=== PATIENT | female | born 1990 | race Asian ===

== ENCOUNTER 2016-07-27 20:19 | Emergency (ER) | payer OTHER ==
[~2016-07-27] VITALS: Ht 170.2 cm; Wt 145.2 kg
[2016-07-27 22:05] VITALS: BP 155/89; TEMP 97.7
== END 2016-07-27 22:06 | disposition home or self-care (01) ==
LOC: ED 20:19
DX: L03.311 Cellulitis of abdominal wall (principal)
CPT/HCPCS: 99281

== ENCOUNTER 2016-08-06 12:33 | Emergency (ER) | payer OTHER ==
[~2016-08-06] VITALS: Ht 172.7 cm; Wt 143.8 kg
[2016-08-06] MEDS ORDERED: HUMALOG MIX SC (13:32)
[2016-08-06 16:12] VITALS: BP 151/79; TEMP 98
== END 2016-08-06 16:13 | disposition home or self-care (01) ==
LOC: ED 12:33
DX: S66.125A Laceration of flexor muscle, fascia and tendon of left ring finger at wrist and hand level, initial encounter (principal); S64.92XA Injury of unspecified nerve at wrist and hand level of left arm, initial encounter; W26.0XXA Contact with knife, initial encounter; Y92.098 Other place in other non-institutional residence as the place of occurrence of the external cause
CPT/HCPCS: 90715; 99282

== ENCOUNTER 2016-12-09 17:01 | Emergency (ER) | payer OTHER ==
[~2016-12-09] VITALS: Ht 170.2 cm; Wt 144.2 kg
[~2016-12-09 17:01] MED LIST: HUMALOG MIX SC
[2016-12-09 17:32] LABS: PLATELET COUNT 228 K/uL (152-353)
[2016-12-09 17:46] LABS: POTASSIUM 3.5 mmol/L (3.6-5.2); SODIUM 125 mmol/L (136-145)
[2016-12-09 20:25] VITALS: BP 136/75; TEMP 98
== END 2016-12-09 20:25 | disposition home or self-care (01) ==
LOC: ED 17:01
DX: N39.0 Urinary tract infection, site not specified (principal); R31.9 Hematuria, unspecified; E11.65 Type 2 diabetes mellitus with hyperglycemia; E66.9 Obesity, unspecified
CPT/HCPCS: 80053; 81000; 82962; 85027; 96374; 99284; J1815

== ENCOUNTER 2016-12-09 18:26 | Outpatient (CLI) | payer OTHER | END 2016-12-09 18:46 | disposition short-term general hospital (02) | LOC: AMB 18:26 | DX: N39.0 Urinary tract infection, site not specified (principal); R31.9 Hematuria, unspecified; E11.65 Type 2 diabetes mellitus with hyperglycemia; E66.9 Obesity, unspecified ==

== ENCOUNTER 2017-05-04 13:27 | Emergency (ER) | payer OTHER ==
[~2017-05-04 13:27] MED LIST changes: +NOVOLOG MIX 70/30 PR SC
[2017-05-04 17:48] LABS: PLATELET COUNT 245 K/uL (152-353)
== END 2017-05-04 14:30 | disposition home or self-care (01) ==
LOC: ED 13:27
DX: K52.9 Noninfective gastroenteritis and colitis, unspecified (principal)
CPT/HCPCS: 80053; 81000; 81025; 82150; 83690; 85027; 99283

== ENCOUNTER 2017-09-07 16:44 | Emergency (ER) | payer OTHER ==
[~2017-09-07] VITALS: Ht 170.2 cm; Wt 131.5 kg
[2017-09-07 17:41] LABS: PLATELET COUNT 247 K/uL (152-353)
[2017-09-07 17:54] LABS: POTASSIUM 3.4 mmol/L (3.6-5.2)
[2017-09-07 18:11] LABS: PARTIAL THROMBOPLASTIN TIME 27.2 SECONDS (24.5-33.6)
[2017-09-07 18:55] VITALS: BP 127/82; TEMP 97.8
== END 2017-09-07 18:55 | disposition home or self-care (01) ==
LOC: ED 16:44
DX: R07.89 Other chest pain (principal)
CPT/HCPCS: 36415; 80053; 80307; 81000; 81025; 82550; 84484; 85027; 85610; 85730; 93005; 96375; 99284; J2060

== ENCOUNTER 2018-01-12 20:19 | Emergency (ER) | payer OTHER ==
[~2018-01-12] VITALS: Ht 170.2 cm; Wt 136.1 kg
[2018-01-12 21:35] LABS: POTASSIUM 3.9 mmol/L (3.6-5.2)
[2018-01-12 22:35] VITALS: BP 130/90; TEMP 97.7
== END 2018-01-12 22:35 | disposition home or self-care (01) ==
LOC: ED 20:19
PROVIDERS: Internal Medicine
DX: I10 Essential (primary) hypertension (principal); R51 Headache; E11.9 Type 2 diabetes mellitus without complications
CPT/HCPCS: 36415; 80053; 93005; 99283

== ENCOUNTER 2018-03-22 14:22 | Emergency (ER) | payer OTHER ==
[~2018-03-22] VITALS: Ht 170.2 cm; Wt 136.1 kg
[2018-03-22 15:20] VITALS: BP 140/75; TEMP 98.2
== END 2018-03-22 15:26 | disposition home or self-care (01) ==
LOC: ED 14:22
DX: M25.561 Pain in right knee (principal)
CPT/HCPCS: 96372; 99282; J1885; L1830

== ENCOUNTER 2018-05-11 07:05 | Emergency (ER) | payer OTHER ==
[~2018-05-11] VITALS: Ht 170.2 cm; Wt 136.1 kg
[2018-05-11 07:08] VITALS: TEMP 97.5
[2018-05-11 08:17] VITALS: BP 150/94
== END 2018-05-11 08:18 | disposition home or self-care (01) ==
LOC: ED 07:05
DX: K04.7 Periapical abscess without sinus (principal); K02.9 Dental caries, unspecified
CPT/HCPCS: 96372; 99282; J1885

== ENCOUNTER 2018-08-16 17:02 | Emergency (ER) | payer OTHER ==
[~2018-08-16] VITALS: Ht 170.2 cm; Wt 123.8 kg
[2018-08-16 17:12] VITALS: BP 141/68; TEMP 98.1
== END 2018-08-16 18:34 | disposition home or self-care (01) ==
LOC: ED 17:02
DX: S63.615A Unspecified sprain of left ring finger, initial encounter (principal); W19.XXXA Unspecified fall, initial encounter
CPT/HCPCS: 96372; 99282; J1885

== ENCOUNTER 2018-10-04 05:48 | Emergency (ER) | payer OTHER ==
[~2018-10-04] VITALS: Ht 170.2 cm; Wt 126.6 kg
[2018-10-04 06:01] VITALS: TEMP 98.8
[2018-10-04 07:45] VITALS: BP 140/84
== END 2018-10-04 07:45 | disposition home or self-care (01) ==
LOC: ED 05:48
DX: R07.81 Pleurodynia (principal); J20.9 Acute bronchitis, unspecified
CPT/HCPCS: 96372; 99283

== ENCOUNTER 2018-10-26 02:48 | Emergency (ER) | payer OTHER ==
[~2018-10-26] VITALS: Ht 170.2 cm; Wt 126.6 kg
[2018-10-26 02:51] VITALS: TEMP 99.1
[2018-10-26] MEDS ORDERED: LISI5TAB10 PO (02:59)
[2018-10-26] MEDS ORDERED: METFORMIN HCL500 M1 PO (02:59)
[2018-10-26] MEDS ORDERED: BIRTH CONTROL PO (03:00)
[2018-10-26 03:44] LABS: PLATELET COUNT 228 K/uL (152-353)
[2018-10-26 03:55] LABS: POTASSIUM 3.7 mmol/L (3.6-5.2)
[2018-10-26 08:00] VITALS: BP 150/80
== END 2018-10-26 08:00 | disposition home or self-care (01) ==
LOC: ED 02:48
PROVIDERS: Emergency Medicine
DX: F32.89 Other specified depressive episodes (principal)
CPT/HCPCS: 36415; 80053; 80307; 80320; 80329; 81000; 81025; 85027; 93005; 99285

== ENCOUNTER 2019-04-12 09:15 | Emergency (ER) | payer OTHER ==
[~2019-04-12] VITALS: Ht 170.2 cm; Wt 126.6 kg
[~2019-04-12 09:15] MED LIST changes: +BIRTH CONTROL PO; +LISI5TAB10 PO; +METFORMIN HCL500 M1 PO
[2019-04-12 10:30] VITALS: BP 135/62; TEMP 97.6
== END 2019-04-12 10:30 | disposition home or self-care (01) ==
LOC: ED 09:15
DX: M54.5 Low back pain (principal)
CPT/HCPCS: 96372; 99283; J1885; J2930

== ENCOUNTER 2019-04-21 02:11 | Emergency (ER) | payer OTHER ==
[~2019-04-21] VITALS: Ht 170.2 cm; Wt 127.0 kg
[2019-04-21 04:19] LABS: PLATELET COUNT 195 K/uL (152-353)
[2019-04-21 04:30] LABS: POTASSIUM 4.7 mmol/L (3.6-5.2)
[2019-04-21 07:15] VITALS: BP 149/82; TEMP 99
== END 2019-04-21 08:17 | disposition home or self-care (01) ==
LOC: ED 02:11
PROVIDERS: Family Medicine
DX: E11.65 Type 2 diabetes mellitus with hyperglycemia (principal)
CPT/HCPCS: 80053; 81000; 82962; 85027; 87502; 96360; 96361; 96365; 96375; 96376; 99284; J1815

== ENCOUNTER 2020-01-12 09:55 | Emergency (ER) | payer OTHER ==
[~2020-01-12] VITALS: Ht 170.2 cm; Wt 136.1 kg
[2020-01-12 10:09] VITALS: TEMP 98.7
[2020-01-12 11:00] VITALS: BP 148/78
== END 2020-01-12 11:00 | disposition home or self-care (01) ==
LOC: ED 09:55
DX: K04.7 Periapical abscess without sinus (principal); E11.65 Type 2 diabetes mellitus with hyperglycemia; Z79.84 Long term (current) use of oral hypoglycemic drugs
CPT/HCPCS: 82962; 96372; 99283; J0696; J1815; J1885

== ENCOUNTER 2020-04-07 15:38 | Emergency (ER) | payer OTHER ==
[~2020-04-07] VITALS: Ht 170.2 cm; Wt 127.0 kg
[2020-04-07 15:48] VITALS: BP 159/89; TEMP 98.9
[2020-04-07 16:25] LABS: PLATELET COUNT 214 K/uL (152-353)
[2020-04-07 16:33] LABS: POTASSIUM 3.9 mmol/L (3.6-5.2)
== END 2020-04-07 17:48 | disposition home or self-care (01) ==
LOC: ED 15:38
PROVIDERS: Emergency Medicine Emergency Medical Services
DX: N39.0 Urinary tract infection, site not specified (principal); E10.65 Type 1 diabetes mellitus with hyperglycemia; Z79.84 Long term (current) use of oral hypoglycemic drugs
CPT/HCPCS: 80053; 81000; 85027; 87086; 87088; 96360; 96365; 99284; J0696

== ENCOUNTER 2020-04-29 01:09 | Emergency (ER) | payer OTHER ==
[~2020-04-29] VITALS: Ht 170.2 cm; Wt 127.0 kg
[2020-04-29 02:20] LABS: PLATELET COUNT 236 K/uL (152-353)
[2020-04-29 03:11] LABS: POTASSIUM 4.3 mmol/L (3.6-5.2)
[2020-04-29 04:18] VITALS: BP 141/73; TEMP 98.3
== END 2020-04-29 04:18 | disposition home or self-care (01) ==
LOC: ED 01:09
PROVIDERS: Emergency Medicine Emergency Medical Services
DX: N23 Unspecified renal colic (principal); M54.89 Other dorsalgia
CPT/HCPCS: 36415; 80048; 81000; 81025; 85027; 96360; 96375; 99284; J2270; J2405

== ENCOUNTER 2020-05-09 22:08 | Emergency (ER) | payer OTHER ==
[~2020-05-09] VITALS: Ht 170.2 cm; Wt 133.8 kg
[2020-05-09 22:57] LABS: POTASSIUM 3.6 mmol/L (3.6-5.2)
[2020-05-09 22:58] LABS: PLATELET COUNT 220 K/uL (152-353)
[2020-05-10 00:35] VITALS: BP 149/82; TEMP 98.3
== END 2020-05-10 00:35 | disposition home or self-care (01) ==
LOC: ED 22:12
PROVIDERS: Family Medicine
DX: M62.830 Muscle spasm of back (principal); M54.5 Low back pain; E11.65 Type 2 diabetes mellitus with hyperglycemia; Z79.84 Long term (current) use of oral hypoglycemic drugs
CPT/HCPCS: 36415; 80053; 81000; 85027; 87086; 87088; 96372; 99283; J1885

== ENCOUNTER 2020-06-17 05:53 | Emergency (ER) | payer OTHER ==
[~2020-06-17] VITALS: Ht 170.2 cm; Wt 133.8 kg
[2020-06-17 06:55] VITALS: BP 144/92; TEMP 98.1
== END 2020-06-17 06:57 | disposition home or self-care (01) ==
LOC: ED 05:58
DX: M54.31 Sciatica, right side (principal)
CPT/HCPCS: 96372; 99283; J1885

== ENCOUNTER 2021-06-19 23:23 | Emergency (ER) | payer OTHER ==
[~2021-06-19] VITALS: Ht 170.2 cm; Wt 134.3 kg
[2021-06-20 00:56] LABS: POTASSIUM 4.1 mmol/L (3.6-5.2)
[2021-06-20 01:04] LABS: PLATELET COUNT 207 K/uL (152-353)
[2021-06-20 02:20] VITALS: BP 142/90; TEMP 98
== END 2021-06-20 02:20 | disposition home or self-care (01) ==
LOC: ED 23:23
PROVIDERS: Hospitalist
DX: R10.84 Generalized abdominal pain (principal); E11.65 Type 2 diabetes mellitus with hyperglycemia
CPT/HCPCS: 36415; 80053; 81000; 81025; 83690; 85027; 96360; 96365; 96375; 99284; J0696; J1815; J1885; J2270; J2405

== ENCOUNTER 2022-05-03 09:07 | Emergency (ER) | payer OTHER ==
[~2022-05-03] VITALS: Ht 170.2 cm; Wt 127.0 kg
[2022-05-03 10:02] LABS: PLATELET COUNT 195 K/uL (152-353)
[2022-05-03] MEDS ORDERED: KETO10TA34 PO (11:21)
[2022-05-03 11:26] VITALS: BP 150/90; TEMP 97
== END 2022-05-03 11:26 | disposition home or self-care (01) ==
LOC: ED 09:07
PROVIDERS: Emergency Medicine Emergency Medical Services
DX: K80.20 Calculus of gallbladder without cholecystitis without obstruction (principal)
CPT/HCPCS: 36415; 80048; 81000; 81025; 85027; 96360; 96361; 99284

== ENCOUNTER 2022-05-18 06:30 | Emergency (ER) | payer OTHER ==
[~2022-05-18] VITALS: Ht 170.2 cm; Wt 132.0 kg
[~2022-05-18 06:30] MED LIST changes: +KETO10TA34 PO
[2022-05-18 06:35] VITALS: TEMP 98.9
[2022-05-18 07:45] VITALS: BP 165/80
== END 2022-05-18 07:45 | disposition home or self-care (01) ==
LOC: ED 06:30
DX: J02.0 Streptococcal pharyngitis (principal)
CPT/HCPCS: 81025; 87651; 99283

== ENCOUNTER 2022-06-23 20:27 | Emergency (ER) | payer OTHER ==
[~2022-06-23] VITALS: Ht 175.3 cm; Wt 130.2 kg
[2022-06-23 21:15] LABS: PLATELET COUNT 267 K/uL (152-353)
[2022-06-23 21:18] LABS: POTASSIUM 3.2 mmol/L (3.6-5.2)
[2022-06-23 22:02] VITALS: BP 168/945; TEMP 975
== END 2022-06-23 22:02 | disposition home or self-care (01) ==
LOC: ED 20:27
PROVIDERS: Emergency Medicine
DX: E11.9 Type 2 diabetes mellitus without complications (principal); Z79.84 Long term (current) use of oral hypoglycemic drugs
CPT/HCPCS: 36415; 80053; 80307; 81000; 85027; 93005; 99283

== ENCOUNTER 2022-10-25 14:41 | Emergency (ER) | payer OTHER ==
[~2022-10-25] VITALS: Ht 175.3 cm; Wt 127.0 kg
[2022-10-25 14:44] VITALS: TEMP 99.1
[2022-10-25 15:54] VITALS: BP 195/111
[2022-10-25 16:04] LABS: POTASSIUM 4.1 mmol/L (3.6-5.2)
[2022-10-25 16:14] LABS: PLATELET COUNT 242 K/uL (152-353)
== END 2022-10-25 15:59 | disposition left against medical advice (07) ==
LOC: ED 14:41
PROVIDERS: Family Medicine
DX: Z34.90 Encounter for supervision of normal pregnancy, unspecified, unspecified trimester (principal); Z53.29 Procedure and treatment not carried out because of patient's decision for other reasons; F17.290 Nicotine dependence, other tobacco product, uncomplicated; F12.90 Cannabis use, unspecified, uncomplicated
CPT/HCPCS: 36415; 80048; 81000; 81025; 82948; 85027; 87077; 87086; 87088; 87186; 96374; 99284; J3490